=== PATIENT | male | born 1950 | race Caucasian/White ===

== ENCOUNTER 2021-07-02 13:37 | Emergency (ER) | payer MEDICARE ==
[~2021-07-02] VITALS: Ht 172.7 cm; Wt 68.5 kg
[2021-07-02 14:21] LABS: BASO % 0.2 % (0.0-1.0); EOS % 0.2 % (1.0-4.0); HEMATOCRIT 44.1 % (42.0-52.0); LYMPH % 8.3 % (27.0-41.0); MEAN CELL VOLUME 96.9 fl (80.0-94.0); MEAN CORPUSCULAR HGB 31.4 pg (27.0-31.0); MEAN CORPUSCULAR HGB CONC 32.4 g/dl (33.0-37.0); MEAN PLATELET VOLUME 9.9 fl (9.6-12.3); MONO # 0.7 10*3/uL (0.1-1.0); MONO % 5.6 % (3.0-9.0); NEUT # 10.3 10*3/uL (2.3-7.9); NEUT % 85.3 % (47.0-73.0); PLATELET COUNT AUTOMATED 249 10*3/uL (130-400); RED BLOOD COUNT 4.55 10*6/uL (4.50-5.90); RED CELL DISTRI WIDTH 13.1 % (0-14.5); WHITE BLOOD COUNT 12.1 10*3/uL (4.8-10.8)
[2021-07-02 14:27] LABS: BILIRUBIN Negative (Negative); BLOOD Negative (Negative); CLARITY Clear (Clear); COLOR Yellow (Yellow); GLUCOSE 2+ (Negative); KETONE Negative (Negative); LEUKO ESTERASE Negative (Negative); NITRITE Negative (Negative); PH 6.5 (4.5-8.0); UROBILINOGEN 0.2 E.U./dl (0.0-1.0)
[2021-07-02 14:36] LABS: URINE AMPHETAMINES > 1000 (1000ng/ml); URINE BARBITURATES < 200 (200ng/ml); URINE BENZODIAZEPINES < 200 (200ng/ml); URINE CANNABINOIDS (THC) < 50 (50ng/ml); URINE COCAINE < 300 (300ng/ml); URINE METHADONE < 300 (300ng/ml); URINE OPIATES < 300 (300ng/ml)
[2021-07-02 14:40] LABS: URINE PHENCYCLIDINE < 25 (25ng/ml)
[2021-07-02 14:44] LABS: ALBUMIN 3.7 gm/dl (3.1-4.5); ALKALINE PHOSPHATASE 102 U/L (45-117); BUN 10 mg/dl (7-24); CHLORIDE 106 mmol/L (98-107); CREATININE 0.97 mg/dL (0.70-1.30); POTASSIUM 4.7 mmol/L (3.5-5.1); SGOT/AST 28 IU/L (3-35); SGPT/ALT 27 U/L (12-78); SODIUM 138 mmol/L (136-145)
[2021-07-02 14:46] LABS: ACETAMINOPHEN (TYLENOL) < 5.0 ug/ml (10-30); TROPONIN I < 0.015 ng/ml (<0.045)
[2021-07-02 14:49] LABS: ETHYL ALCOHOL < 3.0 mg/dl (<3)
[2021-07-02 14:51] LABS: INTERNATIONAL NORM RATIO 1.1 (2.0-3.5)
[2021-07-02 14:52] LABS: BACTERIA TRACE; EPITHELIAL CELLS 0-2; RBC 0-2 rbc/hpf (0-2); WBC 0-2 wbc/hpf (0-5)
== END 2021-07-02 18:53 | disposition home or self-care (01) ==
LOC: ED 13:37
PROVIDERS: Physician Assistant
DX: T50.901A Poisoning by unspecified drugs, medicaments and biological substances, accidental (unintentional), initial encounter (principal); F17.200 Nicotine dependence, unspecified, uncomplicated; Y92.89 Other specified places as the place of occurrence of the external cause

== ENCOUNTER 2025-02-06 23:00 | Emergency (ER) | payer OTHER ==
[~2025-02-06] VITALS: Wt 36.3 kg
[2025-02-06] MEDS ORDERED: Pantoprazole Sodium 40 MG VIAL IV ONE (23:05)
[2025-02-06] MEDS ORDERED: Pantoprazole Sodium 40 MG in SODIUM CHLORIDE 0.9% 50 ML IV SCH (23:05)
[2025-02-06] MEDS ORDERED: SODIUM CHLORIDE 0.9% 1,000 ML IV ONE (23:05)
[2025-02-06] MEDS ORDERED: IOHEXOL 300 MG/ML 100 ML VIAL IV ONE (23:10)
[2025-02-06 23:28] LABS: MEAN CELL VOLUME 94.5 fl (80.0-94.0); MEAN CORPUSCULAR HGB 28.4 pg (27.0-31.0); PLATELET COUNT AUTOMATED 304 10*3/uL (130-400); RED BLOOD COUNT 4.02 10*6/uL (4.50-5.90); RED CELL DISTRI WIDTH 16.6 % (0-14.5); WHITE BLOOD COUNT 9.3 10*3/uL (4.8-10.8)
[2025-02-06 23:30] LABS: MANUAL DIFF REFLEX YES
[2025-02-06 23:40] LABS: ACT PARTIAL THROMBO TIME 27.6 SECONDS (20.0-32.1)
[2025-02-06 23:50] LABS: ALKALINE PHOSPHATASE 84 U/L (46-116); BUN 29 mg/dl (9-23); CHLORIDE 95 mmol/L (98-107); LIPASE 27 U/L (12-53); POTASSIUM 4.3 mmol/L (3.4-5.1); SGPT/ALT 12 U/L (5-49); TOTAL PROTEIN 6.2 gm/dL (6.0-8.0)
[2025-02-06 23:55] LABS: PLATELET SUFFICIENCY NORMAL (NORMAL); TOTAL CELLS COUNTED 100 #CELLS
[2025-02-06 23:56] LABS: ETHYL ALCOHOL < 3.0 mg/dl (<3)
[2025-02-07] MEDS ORDERED: SODIUM CHLORIDE 0.9% 1,000 ML IV ONE ×2 (00:10→14:55)
[2025-02-07] MEDS ORDERED: VITAMIN B-121000 MC1 SL (00:56)
[2025-02-07] MEDS ORDERED: PANTOPRAZOLE SO40 MG PO (00:57)
[2025-02-07] MEDS ORDERED: Pantoprazole Sodium 40 MG IV ONE (01:12)
[2025-02-07 08:50] LABS: HEMATOCRIT 31.2 % (42.0-52.0); MEAN CELL VOLUME 92.9 fl (80.0-94.0); MEAN CORPUSCULAR HGB 28.9 pg (27.0-31.0); MEAN CORPUSCULAR HGB CONC 31.1 g/dl (33.0-37.0); MEAN PLATELET VOLUME 9.5 fl (9.6-12.3); RED BLOOD COUNT 3.36 10*6/uL (4.50-5.90); RED CELL DISTRI WIDTH 16.8 % (0-14.5); WHITE BLOOD COUNT 7.5 10*3/uL (4.8-10.8)
[2025-02-07] MEDS ORDERED: SODIUM CHLORIDE 0.9% 50 ML BAG IV ONE (08:57)
[2025-02-07 09:12] LABS: PLATELET COUNT AUTOMATED 187 10*3/uL (130-400)
[2025-02-07 09:13] LABS: MANUAL DIFF REFLEX YES
[2025-02-07 09:50] LABS: TOTAL CELLS COUNTED 100 #CELLS
[2025-02-07 10:02] LABS: PLATELET SUFFICIENCY NORMAL (NORMAL)
[2025-02-07] MEDS ORDERED: SODIUM CHLORIDE 0.9% 500 ML IV ONE (10:12)
[2025-02-07 10:33] VITALS: BP 67/42
[2025-02-07 11:00] VITALS: BP 84/46
[2025-02-07 11:30] VITALS: BP 90/55
[2025-02-07 12:00] VITALS: BP 82/47
[2025-02-07 12:30] VITALS: BP 80/56
[2025-02-07 13:00] VITALS: BP 85/52
[2025-02-07] MEDS ORDERED: Ondansetron Hydrochloride 4 MG/2 ML VIAL IV ONE (13:55)
[2025-02-07] MEDS ORDERED: Lidocaine Hydrochloride 15 ML UDC PO ONE (14:10)
[2025-02-07] MEDS ORDERED: BENZOCAINE 20% 11.9 GM GEL T ONE (14:10)
[2025-02-07] MEDS ORDERED: NOREPINEPHRINE BITARTRATE/D5W 250 ML IV SCH (14:55)
== END 2025-02-07 17:29 | disposition short-term general hospital (02) ==
LOC: ED 23:00
PROVIDERS: Emergency Medicine; Internal Medicine
DX: I26.99 Other pulmonary embolism without acute cor pulmonale (principal); R53.81 Other malaise; C78.89 Secondary malignant neoplasm of other digestive organs; N28.9 Disorder of kidney and ureter, unspecified; K92.2 Gastrointestinal hemorrhage, unspecified; R00.0 Tachycardia, unspecified; R64 Cachexia; Z79.899 Other long term (current) drug therapy